=== PATIENT | male | born 1985 | race American Indian/Alaskan Native ===

== ENCOUNTER 2018-10-06 07:50 | Emergency (ER) | payer OTHER ==
[2018-10-06] MEDS ORDERED: ZOFRAN IV ONE (08:32)
[2018-10-06] MEDS ORDERED: SUBLIMAZE IV ONE (08:32)
[2018-10-06] MEDS ORDERED: DIPRIVAN 10 MG/ML IV ONE ×3 (08:45→09:11)
[2018-10-06] MEDS ORDERED: KETALAR IV ONE ×4 (08:45→09:13)
[2018-10-06] MEDS ORDERED: KETAMINE HCL IV ONE (08:48)
--- NOTE | 2018-10-06 09:22 | XRay Report ---
LEFT SHOULDER RADIOGRAPHS INDICATION: Obvious deformity. COMPARISON: None similar at this institution. FINDINGS: Single frontal view of the left shoulder suggests anteroinferior glenohumeral dislocation. Subtle Hill-Sachs fracture not entirely excluded. Intact AC articulation. Normal imaged lung and ribs. EKG leads. CONCLUSION: Left shoulder dislocation, as described. Thank you for the opportunity to participate in this patient's care.
--- NOTE | 2018-10-06 09:55 | XRay Report ---
LEFT SHOULDER RADIOGRAPH INDICATION: Postreduction. COMPARISON: 8:47 AM earlier today. FINDINGS: Portable, single, frontal left shoulder view, 9:25 AM, 10/06/2018 now demonstrates satisfactory humeral head position against the glenoid. Hill-Sachs fracture possible. Intact acromioclavicular articulation as well. CONCLUSION: Satisfactory post reduction left shoulder radiograph with subtle Hill-Sachs deformity not entirely excluded, as described. Please correlate. Thank you for the opportunity to participate in this patient's care.
--- NOTE | 2018-10-06 11:03 | Emergency Department Report ---
ED General Adult HPI - General Chief complaint: Extremity Injury, Upper Stated complaint: POSS BROKEN (L) ARM Time Seen by Provider: 10/06/18 08:40 Source: patient Mode of arrival: Wheelchair Limitations: No Limitations - History of Present Illness Initial comments: 32-year-old man with apparent left shoulder dislocation while playing basketball. He complains of left shoulder pain only. He denies any other injury or fall. He states he's had this happen to him once before. He has no other complaint. He denies prior medical history otherwise. -: Sudden Location: left, upper extremity Quality: aching Consistency: constant Improves with: none Worsens with: none Associated Symptoms: denies other symptoms Treatments Prior to Arrival: none - Related Data Previous Rx's Medication Instructions Recorded Last Taken Type HYDROcodone/APAP 5-325 [[place] 1 each PO Q6HR PRN #7 tablet 10/06/18 Unknown Rx 5/325] Allergies Allergy/AdvReac Type Severity Reaction Status Date / Time No Known Allergies Allergy Verified 10/06/18 08:09 ED Review of Systems ROS: Stated complaint: POSS BROKEN (L) ARM Other details as noted in HPI Comment: All other systems reviewed and negative ED Past Medical Hx - Past Medical History Previous Medical History?: No - Surgical History Past Surgical History?: No - Social History Smoking Status: Current Some Day Smoker Substance Use Type: None - Medications Home Medications: Home Medications Medication Instructions Recorded Confirmed Last Taken Type HYDROcodone/APAP 5-325 [[place] 1 each PO Q6HR PRN #7 tablet 10/06/18 Unknown Rx 5/325] ED Physical Exam - General Limitations: No Limitations General appearance: alert, in no apparent distress - Head Head exam: Present: atraumatic, normocephalic - Eye Eye exam: Present: normal appearance - ENT ENT exam: Present: mucous membranes moist - Neck Neck exam: Present: normal inspection. Absent: tenderness, meningismus - Respiratory Respiratory exam: Present: normal lung sounds bilaterally. Absent: respiratory distress - Cardiovascular Cardiovascular Exam: Present: regular rate, normal rhythm. Absent: systolic murmur, diastolic murmur, rubs, gallop - GI/Abdominal GI/Abdominal exam: Present: soft, normal bowel sounds. Absent: distended, tenderness, guarding, rebound - Rectal Rectal exam: Present: deferred - Extremities Exam Extremities exam: Present: other (obvious anterior displacement of the head of the humerus relative to the glenoid fossa. Neurovascular exam is intact.). Absent: full ROM - Back Exam Back exam: Present: normal inspection - Neurological Exam Neurological exam: Present: alert, oriented X3 - Psychiatric Psychiatric exam: Present: normal affect, normal mood - Skin Skin exam: Present: warm, dry, intact, normal color. Absent: rash ED Course Vital Signs 10/06/18 10/06/18 10/06/18 08:10 09:01 09:07 Temperature 98.1 F Temperature [ 98.2 F Pre-Procedure] Pulse Rate 70 60 Pulse Rate [ Intra-Procedure ] Pulse Rate [ Post-Procedure] Pulse Rate [Pre 50 L -Procedure] Respiratory 20 13 Rate Respiratory Rate [Intra- Procedure] Respiratory Rate [Post- Procedure] Respiratory 19 Rate [Pre- Procedure] Blood Pressure 121/82 117/81 Blood Pressure [Intra- Procedure] Blood Pressure [Post-Procedure ] Blood Pressure 132/92 [Pre-Procedure] O2 Sat by Pulse 100 97 Oximetry O2 Sat by Pulse Oximetry [ Intra-Procedure ] O2 Sat by Pulse Oximetry [Post -Procedure] O2 Sat by Pulse 100 Oximetry [Pre- Procedure] 10/06/18 10/06/18 10/06/18 09:12 09:17 09:19 Temperature Temperature [ Pre-Procedure] Pulse Rate 68 Pulse Rate [ 51 L Intra-Procedure ] Pulse Rate [ 69 Post-Procedure] Pulse Rate [Pre -Procedure] Respiratory 20 Rate Respiratory 20 Rate [Intra- Procedure] Respiratory 19 Rate [Post- Procedure] Respiratory Rate [Pre- Procedure] Blood Pressure Blood Pressure 139/95 [Intra- Procedure] Blood Pressure 122/85 [Post-Procedure ] Blood Pressure [Pre-Procedure] O2 Sat by Pulse Oximetry O2 Sat by Pulse 100 Oximetry [ Intra-Procedure ] O2 Sat by Pulse 99 Oximetry [Post -Procedure] O2 Sat by Pulse Oximetry [Pre- Procedure] 10/06/18 10/06/18 10/06/18 09:22 09:27 09:32 Temperature Temperature [ Pre-Procedure] Pulse Rate Pulse Rate [ Intra-Procedure ] Pulse Rate [ 57 L 50 L 63 Post-Procedure] Pulse Rate [Pre -Procedure] Respiratory Rate Respiratory Rate [Intra- Procedure] Respiratory 19 19 20 Rate [Post- Procedure] Respiratory Rate [Pre- Procedure] Blood Pressure Blood Pressure [Intra- Procedure] Blood Pressure 115/78 116/78 123/83 [Post-Procedure ] Blood Pressure [Pre-Procedure] O2 Sat by Pulse Oximetry O2 Sat by Pulse Oximetry [ Intra-Procedure ] O2 Sat by Pulse 99 100 100 Oximetry [Post -Procedure] O2 Sat by Pulse Oximetry [Pre- Procedure] 10/06/18 10:01 Temperature Temperature [ Pre-Procedure] Pulse Rate 62 Pulse Rate [ Intra-Procedure ] Pulse Rate [ Post-Procedure] Pulse Rate [Pre -Procedure] Respiratory 20 Rate Respiratory Rate [Intra- Procedure] Respiratory Rate [Post- Procedure] Respiratory Rate [Pre- Procedure] Blood Pressure 118/82 Blood Pressure [Intra- Procedure] Blood Pressure [Post-Procedure ] Blood Pressure [Pre-Procedure] O2 Sat by Pulse 99 Oximetry O2 Sat by Pulse Oximetry [ Intra-Procedure ] O2 Sat by Pulse Oximetry [Post -Procedure] O2 Sat by Pulse Oximetry [Pre- Procedure] - Reevaluation(s) Reevaluation #1: Patient underwent procedural sedation and successful uncomplicated reduction of the shoulder without difficulty. His recovery was uneventful. He had no problems during sedation. He was discharged upon full recovery. He was placed in sling. 10/06/18 11:01 - Orthopedic Joint Reduction Joint #1 Consent Obtained: verbal consent Time Out Performed: No Side: left Joint Reduction Location: shoulder Analgesia: moderate sedation Shoulder Technique Used (if applicable): other (modified Maria Eugenia) Post-Reduction Neuro Exam: intact Post-Reduction Vascular Exam: intact Post Reduction X-Ray Obtained: Yes Post Reduction X-Ray Results: reduced Splint Applied: Yes Patient Tolerated Procedure: well ED Medical Decision Making - Radiology Data Radiology results: image reviewed (anterior dislocation with reduction) Critical care attestation.: If time is entered above; I have spent that time in minutes in the direct care of this critically ill patient, excluding procedure time. ED Disposition Clinical Impression: Anterior dislocation of left shoulder Qualifiers: Encounter type: initial encounter Qualified Code(s): S43.015A - Anterior dislocation of left humerus, initial encounter Disposition: TO HOME OR SELFCARE Is pt being admited?: No Does the pt Need Aspirin: No Condition: Stable Instructions: Shoulder Dislocation (ED) Additional Instructions: Orthopedic follow-up. Rx needed for pain. Return any acute change or problem. Sling for the next 24-48 hours. Do not stress shoulder joint. Prescriptions: HYDROcodone/APAP 5-325 [[place] 5/325] 1 each PO Q6HR PRN #7 tablet PRN Reason: Pain Referrals: ROHAN MICHELLE MD [Primary Care Provider] - 3-5 Days JAYME WIGGINS MD [Staff Physician] - 3-5 Days Time of Disposition: 11:04
[2018-10-06 11:33] VITALS: BP 110/76
== END 2018-10-06 11:32 | disposition home or self-care (01) ==
LOC: ED 07:50
DX: S43.015A Anterior dislocation of left humerus, initial encounter (principal); F17.200 Nicotine dependence, unspecified, uncomplicated; X58.XXXA Exposure to other specified factors, initial encounter; Y93.67 Activity, basketball; Y92.89 Other specified places as the place of occurrence of the external cause; Y99.8 Other external cause status
CPT/HCPCS: 23650; 73020; 96374; 96375; 99284; J2405; J2704; J3010